=== PATIENT | female | born 1990 | race African-American/Black ===

== ENCOUNTER 2021-12-20 05:11 | Observation (INO) | payer OTHER ==
[2021-12-20] MEDS ORDERED: METOCLOPRAMIDE HCL INJECTION 10 MG/2 ML VIAL IVPB ONE (05:49)
[2021-12-20] MEDS ORDERED: SODIUM CHLORIDE 0.9% 500 ML INFUS.BAG IV ONE (05:49)
[2021-12-20] MEDS ORDERED: ACETAMINOPHEN 1000 MG/100 ML BAG IVPB ONE (05:49)
[2021-12-20] MEDS ORDERED: MECLIZINE HCL 12.5 MG TABLET PO ONE ×2 (05:49)
[2021-12-20 05:58] VITALS: BMI 31.8
[2021-12-20] MEDS ORDERED: MECLIZINE HCL 25 MG TABLET (FP) ONE (06:25)
[2021-12-20 06:41] VITALS: TEMP 98.6
[2021-12-20 06:44] LABS: BASO % 0.4 % (0-2.0); EOS % 1.2 % (0-4.5); HEMATOCRIT 35.3 % (32.4-45.2); HEMOGLOBIN 11.7 GM/dL (10.7-15.3); LYMPH % 13.3 % (8-40); MCH 29.9 pg (25.7-33.7); MCHC 33.1 g/dl (32.0-36.0); MEAN CELL VOLUME 90.4 fl (80-96); MEAN PLT VOLUME 8.9 fl (7.5-11.1); MONO % 9.7 % (3.8-10.2); NEUT % 75.4 % (42.8-82.8); PLATELET COUNT 279 10^3/uL (134-434); WHITE BLOOD COUNT 10.3 K/mm3 (4.0-10.0)
[2021-12-20 06:59] LABS: ALBUMIN 2.8 g/dl (3.4-5.0); CALCIUM 9.2 mg/dL (8.5-10.1)
[2021-12-20 07:00] LABS: BLOOD UREA NITROGEN 7.9 mg/dL (7-18)
[2021-12-20 07:02] LABS: CREATININE 0.6 mg/dL (0.55-1.3)
[2021-12-20 07:04] LABS: BILIRUBIN,TOTAL 0.2 mg/dL (0.2-1); TOT PROT 6.6 g/dl (6.4-8.2)
[2021-12-20 08:46] LABS: PH,URINE 6.5 (5.0-8.0); URINE APPEARANCE CLEAR; URINE BILIRUBIN NEGATIVE (NEGATIVE); URINE COLOR YELLOW; URINE GLUCOSE (UA) NEGATIVE (NEGATIVE); URINE KETONE NEGATIVE (NEGATIVE); URINE LEUK ESTERASE NEGATIVE (NEGATIVE); URINE NITRITE NEGATIVE (NEGATIVE); URINE PROTEIN NEGATIVE (NEGATIVE); URINE UROBILINOGEN 0.2 mg/dL (0.2-1.0)
[2021-12-20] MEDS ORDERED: diphenhydrAMINE HCL 25 MG CAPSULE (FP) PO ONE ×3 (15:06→15:35)
[2021-12-20] MEDS ORDERED: MECLIZINE HCL 25 MG TABLET (FP) PO SCH (18:00)
[2021-12-20 18:06] VITALS: BP 104/64; PULSE 89
== END 2021-12-20 18:06 | disposition home or self-care (01) ==
LOC: JER 05:11 → JERBED 15:41
PROVIDERS: ADMIT Internal Medicine; ATTEND Internal Medicine
PROC: 3E033NZ Introduction of Analgesics, Hypnotics, Sedatives into Peripheral Vein, Percutaneous Approach (ICD-10-PCS; principal; 2021-12-20)
PROC: 3E033GC Introduction of Other Therapeutic Substance into Peripheral Vein, Percutaneous Approach (ICD-10-PCS; 2021-12-20)
PROC: 3E0337Z Introduction of Electrolytic and Water Balance Substance into Peripheral Vein, Percutaneous Approach (ICD-10-PCS; 2021-12-20)
DX: R42 Dizziness and giddiness (principal); O30.002 Twin pregnancy, unspecified number of placenta and unspecified number of amniotic sacs, second trimester; J45.909 Unspecified asthma, uncomplicated; Z3A.17 17 weeks gestation of pregnancy; Z29.9 Encounter for prophylactic measures, unspecified
CPT/HCPCS: 36415; 73552-TC-LT-FY; 73610-TC-LT-FY; 76816-TC; 80053; 81003; 82375; 85025; 87086; 99285-25; C9803; G0378; J0131; U0003; U0005

== ENCOUNTER 2022-05-15 21:30 | Inpatient (IN) | payer OTHER ==
[2022-05-15] MEDS: ELECTROLYTE-148 SOLN 1,000 ML IV SCH (22:10)
[2022-05-15 23:42] LABS: BASO % 0.8 % (0-2.0); EOS % 0.6 % (0-4.5); HEMATOCRIT 33.4 % (32.4-45.2); HEMOGLOBIN 11.3 GM/dL (10.7-15.3); LYMPH % 16.6 % (8-40); MCH 30.4 pg (25.7-33.7); MCHC 33.8 g/dl (32.0-36.0); MEAN PLT VOLUME 8.9 fl (7.5-11.1); MONO % 10.9 % (3.8-10.2); NEUT % 71.1 % (42.8-82.8); PLATELET COUNT 305 10^3/uL (134-434); RBC 3.71 M/mm3 (3.60-5.2); RDW 15.5 % (11.6-15.6); WHITE BLOOD COUNT 9.3 K/mm3 (4.0-10.0)
[2022-05-15 23:48] LABS: INR 0.95 (0.83-1.09); PROTHROMBIN TIME (PATIENT) 10.9 SEC (9.7-13.0)
[2022-05-15 23:50] LABS: ACTIVATED PTT 30.9 SECONDS (25.2-36.5)
[2022-05-15 23:58] VITALS: BMI 44.3
[2022-05-16 00:03] LABS: CALCIUM 9.5 mg/dL (8.5-10.1)
[2022-05-16 00:04] LABS: ALBUMIN 2.7 g/dl (3.4-5.0); BLOOD UREA NITROGEN 12.2 mg/dL (7-18)
[2022-05-16 00:06] LABS: CREATININE 0.8 mg/dL (0.55-1.3)
[2022-05-16 00:09] LABS: BILIRUBIN,TOTAL 0.2 mg/dL (0.2-1); TOT PROT 6.6 g/dl (6.4-8.2)
[2022-05-16] MEDS ORDERED: FENTANYL/BUPIVACAINE/NS/PF - PCEA - 50 ML DISP.SYRIN EP ONE (00:29)
[2022-05-16 00:32] LABS: SYPHILIS W/ RPR CONF NON-REACTIVE (NONREACTIVE)
[2022-05-16] MEDS ORDERED: BUPIVACAINE HCL/PF 0.25% (2.5MG/ML) 10 ML VIAL ONE (00:37)
[2022-05-16] MEDS: ELECTROLYTE-148 SOLN 1,000 ML IV SCH ×2 (00:50→02:40)
[2022-05-16 00:59] LABS: HIV INTERPRETATION NEGATIVE (NEGATIVE)
[2022-05-16] MEDS ORDERED: NALOXONE HCL 0.4 MG/ML VIAL IVPUSH PRN (01:04)
[2022-05-16] MEDS ORDERED: FENTANYL/BUPIVACAINE/NS/PF - PCEA - 50 ML DISP.SYRIN EP SCH (01:15)
[2022-05-16] MEDS ORDERED: OXYTOCIN 20 UNITS in 0.9% NS 20 UNIT/1,000 ML INFUS.BAG IV ONE (01:44)
[2022-05-16] MEDS ORDERED: LIDOCAINE HCL/EPINEPHRINE/PF 20 ML VIAL ONE (02:00)
[2022-05-16] MEDS ORDERED: OXYTOCIN 10 UNITS/ML VIAL ONE (04:22)
[2022-05-16] MEDS ORDERED: BENZOCAINE 28 GM HEMORRHOIDAL OINTMENT TP PRN (09:07)
[2022-05-16] MEDS ORDERED: BENZOCAINE 20% 57 GM BOTTLE TP PRN (09:07)
[2022-05-16] MEDS ORDERED: METHYLERGONOVINE MALEATE 0.2 MG/1 ML AMP IM PRN (09:07)
[2022-05-16] MEDS ORDERED: WITCH HAZEL 50% (TUCKS) 40 PAD/JAR PAD TP PRN (09:07)
[2022-05-16] MEDS ORDERED: BISACODYL 10 MG SUPP.RECT RC PRN (09:07)
[2022-05-16] MEDS ORDERED: OXYTOCIN 20 UNITS in 0.9% NS 20 UNIT/1,000 ML INFUS.BAG IV SCH (09:45)
[2022-05-16] MEDS: ENOXAPARIN NA (PORCINE) 40 MG/0.4 ML DISP.SYRIN SQ SCH (09:51)
[2022-05-16] MEDS: PRENATAL VITAMINS W/ FOLIC ACID TABLET (FP) PO SCH (09:52)
[2022-05-16] MEDS: IBUPROFEN 600 MG TABLET (FP) PO PRN ×2 (09:52→16:57)
[2022-05-16] MEDS: oxyCODONE HCL 5 MG TABLET PO PRN ×2 (12:15→19:49)
[2022-05-16] MEDS: ACETAMINOPHEN 325 MG TABLET (FP) PO PRN (20:50)
[2022-05-17] MEDS: IBUPROFEN 600 MG TABLET (FP) PO PRN (03:10)
[2022-05-17 09:32] LABS: HEMATOCRIT 29.5 % (32.4-45.2); HEMOGLOBIN 9.9 GM/dL (10.7-15.3); MCH 30.6 pg (25.7-33.7); MCHC 33.7 g/dl (32.0-36.0); MEAN CELL VOLUME 90.8 fl (80-96); MEAN PLT VOLUME 8.9 fl (7.5-11.1); PLATELET COUNT 269 10^3/uL (134-434); RBC 3.25 M/mm3 (3.60-5.2); RDW 15.7 % (11.6-15.6); WHITE BLOOD COUNT 8.4 K/mm3 (4.0-10.0)
[2022-05-17] MEDS: ENOXAPARIN NA (PORCINE) 40 MG/0.4 ML DISP.SYRIN SQ SCH (09:47)
[2022-05-17] MEDS: PRENATAL VITAMINS W/ FOLIC ACID TABLET (FP) PO SCH (09:47)
[2022-05-17] MEDS: oxyCODONE HCL 5 MG TABLET PO PRN ×2 (09:48→22:07)
[2022-05-17 10:10] LABS: ANISOCYTOSIS 1+; MACROCYTOSIS 0
[2022-05-17] MEDS ORDERED: SENNOSIDES/DOCUSATE COMBO (SENNA PLUS) TABLET (UD) PO PRN (22:00)
[2022-05-17] MEDS: ACETAMINOPHEN 325 MG TABLET (FP) PO PRN (23:15)
[2022-05-18] MEDS: oxyCODONE HCL 5 MG TABLET PO PRN (08:11)
[2022-05-18] MEDS: PRENATAL VITAMINS W/ FOLIC ACID TABLET (FP) PO SCH (09:52)
[2022-05-18] MEDS: ENOXAPARIN NA (PORCINE) 40 MG/0.4 ML DISP.SYRIN SQ SCH (09:52)
[2022-05-18 10:02] VITALS: BP 113/75; PULSE 86; TEMP 98.6
[2022-05-18] MEDS: IBUPROFEN 600 MG TABLET (FP) PO PRN (14:43)
== END 2022-05-18 16:30 | disposition home or self-care (01) | DRG 807 ==
LOC: JDEL 21:30 → JLDR 22:35 → J3W 05-16 06:18
PROVIDERS: ADMIT Obstetrics & Gynecology; ATTEND Obstetrics & Gynecology
PROC: 10E0XZZ Delivery of Products of Conception, External Approach (ICD-10-PCS; principal; 2022-05-16)
PROC: 0HQ9XZZ Repair Perineum Skin, External Approach (ICD-10-PCS; 2022-05-16)
PROC: 0W8NXZZ Division of Female Perineum, External Approach (ICD-10-PCS; 2022-05-16)
PROC: 10H07YZ Insertion of Other Device into Products of Conception, Via Natural or Artificial Opening (ICD-10-PCS; 2022-05-16)
DX: O99.214 Obesity complicating childbirth (principal); Z37.0 Single live birth; E66.01 Morbid (severe) obesity due to excess calories; O77.0 Labor and delivery complicated by meconium in amniotic fluid; O69.81X0 Labor and delivery complicated by cord around neck, without compression, not applicable or unspecified; Z3A.38 38 weeks gestation of pregnancy
CPT/HCPCS: 36415; 59409; 80053; 85025; 85610; 85730; 86762; 86780; 86850; 86900; 86901; 87340; 87389; C9803-CS; U0003; U0005

== ENCOUNTER 2023-08-06 14:15 | Emergency (ER) | payer OTHER ==
[2023-08-06 14:39] VITALS: RESP 17; BMI 42.5
[2023-08-06] MEDS ORDERED: ONDANSETRON 4 MG/2 ML VIAL IVPUSH ONE (15:29)
[2023-08-06] MEDS ORDERED: FAMOTIDINE 20 MG/50 ML IVPB 20 MG/50 ML MG IVPB ONE (15:29)
[2023-08-06] MEDS ORDERED: ONDANSETRON 4 MG/2 ML VIAL ONE (15:42)
[2023-08-06] MEDS ORDERED: FAMOTIDINE 10 MG/ML VIAL IVPB ONE (15:43)
[2023-08-06 16:11] LABS: HEMATOCRIT 34.3 % (32.4-45.2); HEMOGLOBIN 11.3 GM/dL (10.7-15.3); MCH 30.3 pg (25.7-33.7); MEAN CELL VOLUME 91.9 fl (80-96); MEAN PLT VOLUME 9.2 fl (7.5-11.1); PLATELET COUNT 265 10^3/uL (134-434); RBC 3.73 M/mm3 (3.60-5.2); RDW 14.7 % (11.6-15.6); WHITE BLOOD COUNT 9.4 K/mm3 (4.0-10.0)
[2023-08-06 16:32] LABS: POTASSIUM 4.6 mmol/L (3.5-5.1)
[2023-08-06 16:35] LABS: BLOOD UREA NITROGEN 10.9 mg/dL (7-18)
[2023-08-06 16:37] LABS: CREATININE 0.7 mg/dL (0.55-1.3)
[2023-08-06 16:40] LABS: BILIRUBIN,TOTAL 0.2 mg/dL (0.2-1); TOT PROT 6.6 g/dl (6.4-8.2)
[2023-08-06] MEDS ORDERED: MAG HYDROX/AL HYDROX/SIMETH 30 ML UNIT-DOSE CUP PO ONE (16:58)
[2023-08-06] MEDS ORDERED: MAG HYDROX/AL HYDROX/SIMETH 30 ML UNIT-DOSE CUP ONE (17:04)
[2023-08-06 17:20] LABS: ANISOCYTOSIS 0; HELMET CELLS 0; HOWELL-JOLLY BODIES 0; MACROCYTOSIS 0; OVALOCYTE 0; ROULEAU 0; SICKELED CELLS 0; TARGET CELLS 0; TEAR DROP CELLS 0; TOXIC GRANULATION 0
[2023-08-06 17:34] VITALS: BP 114/72; PULSE 92; TEMP 99
== END 2023-08-06 18:05 | disposition home or self-care (01) ==
LOC: JER 14:15
PROC: 3E033GC Introduction of Other Therapeutic Substance into Peripheral Vein, Percutaneous Approach (ICD-10-PCS; principal; 2023-08-06)
PROC: 3E033GC Introduction of Other Therapeutic Substance into Peripheral Vein, Percutaneous Approach (ICD-10-PCS; 2023-08-06)
DX: O99.891 Other specified diseases and conditions complicating pregnancy (principal); R07.89 Other chest pain; O21.9 Vomiting of pregnancy, unspecified; O99.612 Diseases of the digestive system complicating pregnancy, second trimester; K20.90 Esophagitis, unspecified without bleeding
CPT/HCPCS: 36415; 71045-TC-FY; 80053; 85025; 93005; 93010; 99285-25

== ENCOUNTER 2023-11-29 01:35 | Inpatient (IN) | payer OTHER ==
[2023-11-29 02:47] LABS: HEMATOCRIT 36.2 % (32.4-45.2); HEMOGLOBIN 12.2 GM/dL (10.7-15.3); MCH 31.9 pg (25.7-33.7); MCHC 33.6 g/dl (32.0-36.0); MEAN CELL VOLUME 94.9 fl (80-96); MEAN PLT VOLUME 9.2 fl (7.5-11.1); PLATELET COUNT 257 10^3/uL (134-434); RBC 3.82 M/mm3 (3.60-5.2); RDW 15.4 % (11.6-15.6)
[2023-11-29 02:55] LABS: INR 0.96 (0.83-1.09); PROTHROMBIN TIME (PATIENT) 11.1 SEC (9.7-13.0)
[2023-11-29 02:57] LABS: POTASSIUM 4.5 mmol/L (3.5-5.1)
[2023-11-29 02:58] LABS: ACTIVATED PTT 31.3 SECONDS (25.2-36.5)
[2023-11-29 02:59] LABS: BLOOD UREA NITROGEN 10.1 mg/dL (7-18)
[2023-11-29 03:02] LABS: CREATININE 0.8 mg/dL (0.55-1.3)
[2023-11-29 03:07] VITALS: BMI 45.6
[2023-11-29] MEDS ORDERED: AMPICILLIN SODIUM 2 GM VIAL ONE (03:27)
[2023-11-29] MEDS ORDERED: AMPICILLIN - 2 GM in SODIUM CHLORIDE 100 ML IVPB ONE ×2 (03:30→04:05)
[2023-11-29] MEDS ORDERED: FENTANYL/BUPIVACAINE/NS/PF - PCEA - 50 ML DISP.SYRIN EP ONE ×2 (03:49→08:35)
[2023-11-29] MEDS: FENTANYL/BUPIVACAINE/NS/PF - PCEA - 50 ML DISP.SYRIN EP SCH ×2 (04:15→09:15)
[2023-11-29] MEDS ORDERED: ELECTROLYTE-148 SOLN 1,000 ML IV SCH (04:15)
[2023-11-29] MEDS ORDERED: NALOXONE HCL 0.4 MG/ML VIAL IVPUSH PRN (04:21)
[2023-11-29] MEDS ORDERED: FENTANYL/BUPIVACAINE/NS/PF - PCEA - 50 ML DISP.SYRIN EP SCH (06:18)
[2023-11-29 06:57] LABS: ANISOCYTOSIS 2+
[2023-11-29 06:58] LABS: OVALOCYTE 2+; PLATELET ESTIMATE ADEQUATE
[2023-11-29] MEDS ORDERED: AMPICILLIN SODIUM 1 GM VIAL ONE ×2 (07:13→07:15)
[2023-11-29] MEDS: AMPICILLIN - 1 GM in SODIUM CHLORIDE 100 ML IVPB SCH ×2 (07:17→10:58)
[2023-11-29] MEDS ORDERED: AMPICILLIN - 1 GM in SODIUM CHLORIDE 100 ML IVPB SCH (07:30)
[2023-11-29] MEDS ORDERED: OXYTOCIN 20 UNITS in 0.9% NS 20 UNIT/1,000 ML INFUS.BAG IV ONE ×2 (09:13→13:15)
[2023-11-29] MEDS ORDERED: BISACODYL 10 MG SUPP.RECT RC PRN (10:03)
[2023-11-29] MEDS ORDERED: WITCH HAZEL 50% (TUCKS) 40 PAD/JAR PAD TP PRN (10:03)
[2023-11-29] MEDS ORDERED: METHYLERGONOVINE MALEATE 0.2 MG/1 ML AMP IM PRN (10:03)
[2023-11-29] MEDS ORDERED: BENZOCAINE 20% 57 GM BOTTLE TP PRN (10:03)
[2023-11-29] MEDS ORDERED: BENZOCAINE 28 GM HEMORRHOIDAL OINTMENT TP PRN (10:03)
[2023-11-29] MEDS: OXYTOCIN 20 UNITS in 0.9% NS 20 UNIT/1,000 ML INFUS.BAG IV SCH ×2 (10:05→13:17)
[2023-11-29 10:31] LABS: CORD BASE EXCESS -0.8 mmol/L (0-2); CORD HCO3 25.6 mmHg (20-29); CORD PCO2 48.5 mmHg (30-78); CORD pH 7.34 (7.14-7.44)
[2023-11-29 10:32] LABS: CORD BASE EXCESS -6.5 mmol/L (0-2); CORD HCO3 23.2 mmHg (20-29); CORD PCO2 64.9 mmHg (30-78); CORD pH 7.171 (7.14-7.44)
[2023-11-29] MEDS ORDERED: MISOPROSTOL 200 MCG TABLET PR ONE (12:00)
[2023-11-29] MEDS ORDERED: IBUPROFEN 600 MG TABLET (FP) PO ONE (12:10)
[2023-11-29] MEDS: IBUPROFEN 600 MG TABLET (FP) PO PRN ×3 (12:12→23:07)
[2023-11-29] MEDS: ACETAMINOPHEN 325 MG TABLET (FP) PO PRN (18:32)
[2023-11-30 08:45] LABS: BASO % 0.6 % (0-2.0); EOS % 1.7 % (0-4.5); HEMATOCRIT 34.9 % (32.4-45.2); HEMOGLOBIN 11.6 GM/dL (10.7-15.3); LYMPH % 21.3 % (8-40); MCH 31.5 pg (25.7-33.7); MCHC 33.2 g/dl (32.0-36.0); MEAN CELL VOLUME 94.9 fl (80-96); MEAN PLT VOLUME 9.1 fl (7.5-11.1); MONO % 9.5 % (3.8-10.2); NEUT % 66.9 % (42.8-82.8); PLATELET COUNT 243 10^3/uL (134-434); RBC 3.68 M/mm3 (3.60-5.2); RDW 15.3 % (11.6-15.6); WHITE BLOOD COUNT 9.5 K/mm3 (4.0-10.0)
[2023-11-30] MEDS: IBUPROFEN 600 MG TABLET (FP) PO PRN ×2 (08:52→22:12)
[2023-11-30] MEDS: ENOXAPARIN NA (PORCINE) 40 MG/0.4 ML DISP.SYRIN SQ SCH (09:45)
[2023-11-30] MEDS: ACETAMINOPHEN 325 MG TABLET (FP) PO PRN (11:51)
[2023-11-30] MEDS ORDERED: SENNOSIDES/DOCUSATE COMBO (SENNA PLUS) TABLET (UD) PO PRN (22:00)
[2023-12-01] MEDS: ENOXAPARIN NA (PORCINE) 40 MG/0.4 ML DISP.SYRIN SQ SCH (10:54)
[2023-12-01 14:20] VITALS: BP 120/76; PULSE 94; RESP 17
[2023-12-01 17:14] VITALS: TEMP 97.2
== END 2023-12-01 16:30 | disposition home or self-care (01) | DRG 806 ==
LOC: JLDR 01:35 → J3W 13:30
PROVIDERS: ADMIT Obstetrics & Gynecology; ATTEND Obstetrics & Gynecology
PROC: 10E0XZZ Delivery of Products of Conception, External Approach (ICD-10-PCS; principal; 2023-11-29)
PROC: 10907ZC Drainage of Amniotic Fluid, Therapeutic from Products of Conception, Via Natural or Artificial Opening (ICD-10-PCS; 2023-11-29)
DX: O69.81X0 Labor and delivery complicated by cord around neck, without compression, not applicable or unspecified (principal); O72.2 Delayed and secondary postpartum hemorrhage; Z37.0 Single live birth; O99.824 Streptococcus B carrier state complicating childbirth; Z3A.39 39 weeks gestation of pregnancy
CPT/HCPCS: 36415; 36600; 80048; 82803; 85025; 85610; 85730; 86780; 86850; 86900; 86901

== ENCOUNTER 2024-06-16 13:21 | Emergency (ER) | payer OTHER ==
[2024-06-16 13:41] VITALS: BMI 41.3
[2024-06-16] MEDS ORDERED: FAMOTIDINE 20 MG/50 ML IVPB 20 MG/50 ML MG IVPB ONE (15:52)
[2024-06-16] MEDS ORDERED: ONDANSETRON 4 MG/2 ML VIAL ONE (15:52)
[2024-06-16] MEDS ORDERED: ACETAMINOPHEN INJECTION 100 ML IVPB ONE (15:52)
[2024-06-16] MEDS: FAMOTIDINE 20 MG/50 ML IVPB 20 MG/50 ML MG IVPB ONE (15:55)
[2024-06-16] MEDS: ONDANSETRON 4 MG/2 ML VIAL IVPUSH ONE (15:55)
[2024-06-16] MEDS: ACETAMINOPHEN 1000 MG/100 ML BAG IVPB ONE (15:55)
[2024-06-16] MEDS: SODIUM CHLORIDE 1,000 ML IV STA (15:55)
[2024-06-16 16:02] LABS: PH,URINE 6.5 (5.0-8.0); URINE APPEARANCE CLEAR; URINE BILIRUBIN NEGATIVE (NEGATIVE); URINE COLOR YELLOW; URINE GLUCOSE (UA) NEGATIVE (NEGATIVE); URINE KETONE TRACE (NEGATIVE); URINE LEUK ESTERASE NEGATIVE (NEGATIVE); URINE NITRITE NEGATIVE (NEGATIVE); URINE PROTEIN NEGATIVE (NEGATIVE)
[2024-06-16 16:03] LABS: BASO % 0.7 % (0-2.0); EOS % 1.9 % (0-4.5); HEMATOCRIT 40.4 % (32.4-45.2); HEMOGLOBIN 13.4 GM/dL (10.7-15.3); LYMPH % 34.3 % (8-40); MCH 29.2 pg (25.7-33.7); MCHC 33.2 g/dl (32.0-36.0); MEAN CELL VOLUME 87.8 fl (80-96); MEAN PLT VOLUME 9.2 fl (7.5-11.1); MONO % 8.3 % (3.8-10.2); NEUT % 54.8 % (42.8-82.8); PLATELET COUNT 277 10^3/uL (134-434); RDW 13.7 % (11.6-15.6); WHITE BLOOD COUNT 7.1 K/mm3 (4.0-10.0)
[2024-06-16 16:08] LABS: INR 0.99 (0.83-1.09); PROTHROMBIN TIME (PATIENT) 11.4 SEC (9.7-13.0)
[2024-06-16 16:28] LABS: POTASSIUM 4.4 mmol/L (3.5-5.1)
[2024-06-16 16:30] LABS: BLOOD UREA NITROGEN 12.1 mg/dL (7-18); CALCIUM 9.5 mg/dL (8.5-10.1)
[2024-06-16 16:33] LABS: CREATININE 0.9 mg/dL (0.55-1.3)
[2024-06-16 16:35] LABS: BILIRUBIN,TOTAL 0.5 mg/dL (0.2-1); TOT PROT 7.5 g/dl (6.4-8.2)
[2024-06-16 18:59] VITALS: BP 118/69; PULSE 65; RESP 18; TEMP 98.5
== END 2024-06-16 19:00 | disposition home or self-care (01) ==
LOC: JER 13:21
PROC: 3E033GC Introduction of Other Therapeutic Substance into Peripheral Vein, Percutaneous Approach (ICD-10-PCS; principal; 2024-06-16)
PROC: 3E033NZ Introduction of Analgesics, Hypnotics, Sedatives into Peripheral Vein, Percutaneous Approach (ICD-10-PCS; 2024-06-16)
PROC: 3E033GC Introduction of Other Therapeutic Substance into Peripheral Vein, Percutaneous Approach (ICD-10-PCS; 2024-06-16)
DX: K80.70 Calculus of gallbladder and bile duct without cholecystitis without obstruction (principal); R10.11 Right upper quadrant pain; R11.2 Nausea with vomiting, unspecified
CPT/HCPCS: 36415; 76705-TC; 80053; 81003; 83690; 84703; 85025; 85610; 85730; 86850; 86900; 86901; 87086; 99284-25; J0131